=== PATIENT | female | born 1970 | race Caucasian/White ===

== ENCOUNTER 2019-07-21 13:17 | Emergency (ER) | payer SELFPAY ==
--- NOTE | 2019-07-21 13:53 | EDM.PDOC ---
ED HPI GENERAL MEDICAL PROBLEM - General Chief Complaint: General Stated Complaint: COUGH,FEVER AND PAIN Time Seen by Provider: 07/21/19 13:41 Source of Information: Reports: Patient History Limitations: Reports: No Limitations - History of Present Illness INITIAL COMMENTS - FREE TEXT/NARRATIVE: Patient is a 48-year-old female who is presents to the ER today with complaints of cough, chills, body aches, nausea, and likely fever. She states her symptoms initially began on 18 July and began as nausea, vomiting, and diarrhea. Those symptoms have since resolved, however shortly thereafter she developed respiratory symptoms and body aches. She states this morning she is been having "chest heaviness ". She states it is not painful and that it doesn' t worsen with coughing. 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 She did get a flu shot in June of this last year. Her appetite has been decreased, however she states that she has been consuming an adequate amount of fluid so she does not feel like she is dehydrated. She has no chronic health problems. She has not checked her temperature at home, however she states that her told her she felt like she was on fire last night. She is afebrile in the ER at this point, however she did take a dose of Tylenol around 10:00 this morning. She denies any shortness of breath or productive cough. She is no longer having vomiting or diarrhea. 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: - Past Surgical History HEENT Surgical History: Reports: Tonsillectomy Cardiovascular Surgical History: Reports: Other (See Below) Other Cardiovascular Surgeries/Procedures: cardiac ablasion 2018 Female Surgical History: Reports: Section, Hysterectomy Social & Family History - Family History Family Medical History: Noncontributory - Tobacco Use Smoking Status *Q: Never Smoker Second Hand Smoke Exposure: Yes - Caffeine Use Caffeine Use: Reports: Coffee - Recreational Drug Use Recreational Drug Use: No ED ROS GENERAL - Review of Systems Review Of Systems: Comprehensive ROS is negative, except as noted in HPI. ED EXAM, GENERAL - Physical Exam Exam: See Below Exam Limited By: No Limitations General Appearance: Alert, WD/WN, No Apparent Distress Throat/Mouth: Normal Inspection, Normal Oropharynx Neck: Normal Inspection, Supple, Non-Tender Respiratory/Chest: No Respiratory Distress, Lungs Clear, Normal Breath Sounds, No Accessory Muscle Use, Chest Non-Tender Cardiovascular: Normal Peripheral Pulses, Regular Rate, Rhythm, No Edema, No Murmur GI/Abdominal: Normal Bowel Sounds, Soft, Non-Tender, No Distention Neurological: Alert, Oriented, Normal Cognition Psychiatric: Normal Affect, Normal Mood Skin Exam: Warm, Dry, Intact, Normal Color, No Rash Lymphatic: No Adenopathy EKG INTERPRETATION EKG Date: 07/21/19 Time: 14:02 Rhythm: NSR Rate (Beats/Min): 77 [place]: Normal P-Wave: Present QRS: Normal ST-T: Normal QT: Normal Comparison: NA - No Prior EKG EKG Interpretation Comments: Q wave V2 No ST changes. Read by Dr. Richard Matt MD. Course - Vital Signs Last Recorded V/S: Last Vital Signs Temp 98.2 F 07/21/19 13:33 Pulse 73 07/21/19 13:33 Resp 19 07/21/19 13:33 BP 118/81 07/21/19 13:33 Pulse Ox 95 07/21/19 13:33 - Orders/Labs/Meds Orders: Active Orders 24 hr Category Date Time Status EKG Documentation Completion [RC] STAT Care 07/21/19 14:00 Active Chest 2V [CR] Stat Exams 07/21/19 13:48 Taken Labs: Laboratory Tests 07/21/19 07/21/19 Range/Units 14:08 14:08 WBC 6.68 (3.98-10.04) K/mm3 RBC 4.90 (3.98-5.22) M/mm3 Hgb 14.5 (11.2-15.7) gm/dl Hct 43.6 (34.1-44.9) % MCV 89.0 (79.4-94.8) fl MCH 29.6 (25.6-32.2) pg MCHC 33.3 (32.2-35.5) g/dl RDW Std Deviation 42.3 (36.4-46.3) fL Plt Count 232 (182-369) K/mm3 MPV 9.6 (9.4-12.3) fl Neut % (Auto) 55.1 (34.0-71.1) % Lymph % (Auto) 26.8 (19.3-51.7) % [place] % (Auto) 16.9 H (4.7-12.5) % Eos % (Auto) 1.0 (0.7-5.8) Baso % (Auto) 0.1 (0.1-1.2) % Neut # (Auto) 3.67 (1.56-6.13) K/mm3 Lymph # (Auto) 1.79 (1.18-3.74) K/mm3 [place] # (Auto) 1.13 H (0.24-0.36) K/mm3 Eos # (Auto) 0.07 (0.04-0.36) K/mm3 Baso # (Auto) 0.01 (0.01-0.08) K/mm3 Manual Slide Review Abnormal smear Sodium 142 (136-145) mEq/L Potassium 3.8 (3.5-5.1) mEq/L Chloride 105 (98-107) mEq/L Carbon Dioxide 27 (21-32) mEq/L Anion Gap 13.8 (5-15) BUN 8 (7-18) mg/dL Creatinine 0.9 (0.55-1.02) mg/dL Est Cr Clr Drug Dosing 74.34 mL/min Estimated GFR (MDRD) > 60 (>60) mL/min BUN/Creatinine Ratio 8.9 L (14-18) Glucose 93 (74-106) mg/dL Calcium 8.9 (8.5-10.1) mg/dL Total Bilirubin 0.2 (0.2-1.0) mg/dL AST 18 (15-37) U/L ALT 29 (14-59) U/L Alkaline Phosphatase 65 (46-116) U/L Troponin I < 0.017 (0.00-0.056) ng/mL Total Protein 7.1 (6.4-8.2) g/dl Albumin 3.5 (3.4-5.0) g/dl Globulin 3.6 gm/dL Albumin/Globulin Ratio 1.0 (1-2) - Re-Assessments/Exams Free Text/Narrative Re-Assessment/Exam: Based on patient's exam and history, I feel it is likely she is suffering from a viral illness, however in light of her chest pressure that began this morning I will also include a cardiac workup. I have ordered a CBC, CMP, troponin, EKG , and influenza screen. We will also get a 2 view chest x-ray. 07/21/19 1520 patient's workup was grossly unremarkable. Her EKG was negative for any acute changes. Influenza screen was negative. Hematology was all within normal limits. I feel is likely she is suffering from a viral illness. Discussed these findings with the patient. I will send a prescription for prednisone to help with the cough Discharge instructions as noted. Departure - Departure Time of Disposition: 15:25 Disposition: Home, Self-Care 01 Condition: Fair Clinical Impression: Viral illness - Discharge Information *PRESCRIPTION DRUG MONITORING PROGRAM REVIEWED*: No *COPY OF PRESCRIPTION DRUG MONITORING REPORT IN PATIENT BINH: No Prescriptions: predniSONE [Prednisone] 20 mg PO ASDIRECTED #9 tablet Instructions: Viral Respiratory Infection, [id number] Referrals: PCP,None [Primary Care Provider] - Forms: ED Department Discharge Additional Instructions: You were seen in the emergency Department today with cough, chills, body aches, nausea, and chest tightness. Your workup included a CBC, CMP, troponin, influenza screen, EKG, and chest x-ray. The results of this testing was all normal. There were no signs of a bacterial infection such as pneumonia. It is likely that you are suffering from a viral infection. Treatment for this is symptomatic and to allow the virus to run its course. This generally takes about 7-10 days. I recommend that you maintain adequate hydration and rest. You may use Tylenol or ibuprofen as needed for fever and body aches. I have sent a prescription for prednisone to [place] [facility] in [place] [facility] [facility]. Take this medication as prescribed. If you should experience any new or worsening symptoms, or if you fail to improve over the next 5-7 days as expected, please do not hesitate to return to the emergency department. Sepsis Event Note - Evaluation Sepsis Screening Result: No Definite Risk - Focused Exam Vital Signs: Vital Signs Temp Pulse Resp BP Pulse Ox 07/21/19 13:33 98.2 F 73 19 118/81 95 Date Exam was Performed: 07/21/19 Time Exam was Performed: 18:32 - My Orders Last 24 Hours: My Active Orders 07/21/19 13:48 Chest 2V [CR] Stat 07/21/19 14:00 EKG Documentation Completion [RC] STAT - Assessment/Plan Last 24 Hours: My Active Orders 07/21/19 13:48 Chest 2V [CR] Stat 07/21/19 14:00 EKG Documentation Completion [RC] STAT
--- NOTE | 2019-07-23 17:48 | CR ---
Chest: Two views of the chest were obtained. Comparison: No previous chest x-ray is available. Heart size at the upper limits of normal. Upper mediastinum is normal. Lungs are clear with no acute parenchymal change. Mild scoliosis is noted within the spine. Impression: 1. Heart size at the upper limits of normal. 2. Other findings believed to be incidental. 3. Nothing acute is seen. Diagnostic code #2 This report was dictated in [place] Standard Time
== END 2019-07-21 15:37 | disposition home or self-care (01) ==
LOC: JD.ED 13:17
DX: B34.9 Viral infection, unspecified (principal)
CPT/HCPCS: 36415; 71046; 71046-26; 80053; 84484; 85025; 87804; 93005; 93010; 99283; 99284-25

== ENCOUNTER 2021-03-30 11:12 | Emergency (ER) | payer BC ==
[2021-03-30] MEDS ORDERED: Sodium Chloride 0.9% 1,000 ML IV ONE (11:41)
[2021-03-30] MEDS ORDERED: Ketorolac 30 MG/ML SDV IVPUSH ONE (11:41)
[2021-03-30] MEDS ORDERED: Ondansetron 4 MG/2 ML SDV IVPUSH ONE (12:03)
--- NOTE | 2021-03-30 13:26 | CT ---
CT abdomen and pelvis Technique: Multiple axial sections were obtained from above the dome of the diaphragm inferiorly through the pubic symphysis. Intravenous and oral contrast were not utilized. Study has been performed as a ureteral stone protocol. Reconstructed coronal and sagittal images were obtained. Comparison: No prior abdominal imaging is available. Findings: Scattered areas of nonobstructing calculi are seen within both kidneys. Left kidney shows dilatation of the renal pelvis as well as slightly dilatation of the proximal left ureter. These findings are caused by a 5.7 mm stone within the proximal left ureter. No other ureteral calculi are seen. Visualized lung bases show a small area of focal eventration within the left hemidiaphragm. No acute parenchymal change is seen. Liver contains no focal abnormality. Spleen is within normal limits. Adrenal glands show no nodule. Pancreas shows no discrete abnormality. Gallbladder contains no calcified gallstones. Abdominal aorta shows no aneurysm. No retroperitoneal adenopathy or mesenteric abnormalities are seen. Appendix is seen which is normal in size. No pelvic mass or adenopathy is seen. Mild scattered diverticuli are seen within the sigmoid colon with no inflammatory change to indicate diverticulitis. Bone window settings were reviewed which show mild scattered degenerative change within the spine. Impression: 1. 5.7 mm obstructing stone within the proximal left ureter. 2. Multiple nonobstructing calculi are seen within both kidneys. 3. Other findings believed to be chronic as described above. Diagnostic code #3
[2021-03-30] MEDS ORDERED: HYDROmorphone 0.5 MG/0.5 ML Syringe IVPUSH ONE (13:27)
[2021-03-30] MEDS ORDERED: Tamsulosin 0.4 MG Cap.ER PO ONE (13:28)
--- NOTE | 2021-03-30 13:53 | EDM.PDOC ---
ED HPI GENERAL MEDICAL PROBLEM - General Chief Complaint: Flank Pain Stated Complaint: KIDNEY STONE Time Seen by Provider: 03/30/21 11:23 Source of Information: Reports: Patient History Limitations: Reports: No Limitations, Other (ED vital signs reveal a temp of 96.6, pulse of 95, respiratory rate of 20, blood pressure 162/93, pulse ox 99% on room air.) - History of Present Illness INITIAL COMMENTS - FREE TEXT/NARRATIVE: 50-year-old female presents the emergency department with complaints of left flank pain that started at about 7 AM this morning. She states she has a hist ory of kidney stones and states this feels identical to the last one that she had. She states that the pain came on suddenly and caused her to feel nauseated however she has not vomited. Prior to this morning she has felt fine. She denies any recent fever, chills or diarrhea. She denies any urinary symptoms. She denies any hematuria noted in her urine. She states she is otherwise healthy. She is a pack-a-day smoker for the past 35 years. 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 ENGINEER: none Left Flank Pain Score (Numeric/FACES): 10 - Related Data Allergies Allergy/AdvReac Type Severity Reaction Status Date / Time No Known Allergies Allergy Verified 07/21/19 13:39 Home Meds: Home Meds Hydrocodone/Acetaminophen [HYDROcodone-Acetaminophen 5-325 MG] 1 each PO Q4H PRN #14 tab 03/30/21 [Rx] Ondansetron [Zofran ODT] 4 mg PO Q6H PRN #12 tab.dis 03/30/21 [Rx] Tamsulosin HCl [Flomax] 0.4 mg PO DAILY #10 cap.er.24h 03/30/21 [Rx] Past Medical History Cardiovascular History: Reports: Other (See Below) Other Cardiovascular History: 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 Genitourinary History: Reports: UTI, Recurrent 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: - Past Surgical History HEENT Surgical History: Reports: Tonsillectomy Cardiovascular Surgical History: Reports: Other (See Below) Other Cardiovascular Surgeries/Procedures: cardiac ablasion 2018 Female Surgical History: Reports: Section, Hysterectomy Social & Family History - Family History Family Medical History: No Pertinent Family History - Tobacco Use Tobacco Use Status *Q: Current Every Day Tobacco User Years of Tobacco use: 36 Packs/Tins Daily: 0.5 - Caffeine Use Caffeine Use: Reports: Coffee, Soda - Recreational Drug Use Recreational Drug Use: No ED ROS GENERAL - Review of Systems Review Of Systems: Comprehensive ROS is negative, except as noted in HPI. ED EXAM, RENAL/ - Physical Exam Exam: See Below Exam Limited By: No Limitations General Appearance: Alert, WD/WN, Moderate Distress Ears: Normal External Exam, Hearing Grossly Normal Nose: Normal Inspection Throat/Mouth: Normal Inspection, Normal Lips, Normal Voice, No Airway Compromise Head: Atraumatic Neck: Normal Inspection, Supple Respiratory/Chest: No Respiratory Distress, Lungs Clear, Normal Breath Sounds, No Accessory Muscle Use, Chest Non-Tender Cardiovascular: Normal Peripheral Pulses, Regular Rate, Rhythm, No Edema, No Murmur GI/Abdominal: Normal Bowel Sounds, Soft, Non-Tender, No Distention (Female) Exam: Deferred Rectal (Female) Exam: Deferred Back Exam: Normal Inspection, Full Range of Motion, CVA Tenderness (L) Extremities: Normal Inspection Neurological: Alert, Oriented, Normal Cognition Psychiatric: Normal Affect, Normal Mood Skin Exam: Warm, Dry, Intact, Normal Color, No Rash Lymphatic: No Adenopathy Course - Vital Signs Text/Narrative:: As stated above, patient presents with left flank pain that started early this morning. Upon exam, the patient is pacing in the room and does appear to be uncomfortable. Lungs are clear to auscultation per. She does have costovertebral angle tenderness noted to the left flank. Will obtain lab studies to include a CBC, CMP, C-reactive protein, urinalysis with micro and culture if indicated. Also obtain a CT of the abdomen and pelvis without contrast to rule out stone. Patient will also be given a liter of normal saline IV as well as Toradol 30 mg IV and Zofran 4 mg IV. Last Recorded V/S: Last Vital Signs Temp 96.6 F L 03/30/21 11:30 Pulse 95 03/30/21 11:30 Resp 20 03/30/21 11:30 BP 162/93 H 03/30/21 11:30 Pulse Ox 99 03/30/21 11:30 - Orders/Labs/Meds Orders: Active Orders 24 hr Category Date Time Status CULTURE URINE [MREF] Stat Lab 03/30/21 13:40 Received Labs: Laboratory Tests 03/30/21 03/30/21 03/30/21 Range/Units 11:30 11:30 13:40 WBC 26.12 H (3.98-10.04) K/mm3 RBC 4.92 (3.98-5.22) M/mm3 Hgb 14.9 (11.2-15.7) gm/dl Hct 43.7 (34.1-44.9) % MCV 88.8 (79.4-94.8) fl MCH 30.3 (25.6-32.2) pg MCHC 34.1 (32.2-35.5) g/dl RDW Std Deviation 41.9 (36.4-46.3) fL Plt Count 372 H D (182-369) K/mm3 MPV 10.0 (9.4-12.3) fl Neut % (Auto) 91.9 H (34.0-71.1) % Lymph % (Auto) 2.3 L (19.3-51.7) % [place] % (Auto) 5.4 (4.7-12.5) % Eos % (Auto) 0 L (0.7-5.8) Baso % (Auto) 0.1 (0.1-1.2) % Neut # (Auto) 24.01 H (1.56-6.13) K/mm3 Lymph # (Auto) 0.59 L (1.18-3.74) K/mm3 [place] # (Auto) 1.41 H (0.24-0.36) K/mm3 Eos # (Auto) 0.00 L (0.04-0.36) K/mm3 Baso # (Auto) 0.02 (0.01-0.08) K/mm3 Manual Slide Review Abnormal smear Sodium 137 (136-145) mEq/L Potassium 3.8 (3.5-5.1) mEq/L Chloride 100 (98-107) mEq/L Carbon Dioxide 25 (21-32) mEq/L Anion Gap 15.8 H (5-15) BUN 16 (7-18) mg/dL Creatinine 0.9 (0.55-1.02) mg/dL Est Cr Clr Drug Dosing 72.72 mL/min Estimated GFR (MDRD) > 60 (>60) mL/min BUN/Creatinine Ratio 17.8 (14-18) Glucose 135 H (70-99) mg/dL Calcium 9.2 (8.5-10.1) mg/dL Magnesium 1.8 (1.8-2.4) mg/dL Total Bilirubin 0.5 (0.2-1.0) mg/dL AST 17 (15-37) U/L ALT 24 (14-59) U/L Alkaline Phosphatase 97 (46-116) U/L C-Reactive Protein 1.5 H* (<1.0) mg/dL Total Protein 7.6 (6.4-8.2) g/dl Albumin 4.2 (3.4-5.0) g/dl Globulin 3.4 gm/dL Albumin/Globulin Ratio 1.2 (1-2) Urine Color Yellow (Yellow) Urine Appearance Clear (Clear) Urine pH 7.0 (5.0-8.0) Ur Specific [place] 1.020 (1.005-1.030) Urine Protein Negative (Negative) Urine Glucose (UA) Negative (Negative) Urine Ketones Trace H (Negative) Urine Occult Blood 1+ H (Negative) Urine Nitrite Positive H (Negative) Urine Bilirubin Negative (Negative) Urine Urobilinogen 0.2 (0.2-1.0) Ur Leukocyte Esterase 1+ H (Negative) Urine RBC 5-10 H (0-5) /hpf Urine WBC 10-20 H (0-5) /hpf Ur Squamous Epith Cells 0-5 (0-5) /hpf Urine Bacteria Many H (FEW) /hpf Urine Mucus Rare (FEW) /hpf Meds: Medications Discontinued Medications Generic Name Dose Route Start Last Admin Trade Name Freq PRN Reason Stop Dose Admin Hydromorphone HCl 0.5 mg 03/30/21 13:27 03/30/21 13:57 Hydromorphone 0.5 Mg/0.5 Ml Syringe IVPUSH 03/30/21 13:28 0.5 mg ONETIME ONE Administration Sodium Chloride 1,000 mls @ 999 mls/hr 03/30/21 11:41 03/30/21 11:55 Normal Saline IV 03/30/21 12:41 999 mls/hr ONETIME ONE Administration Ketorolac Tromethamine 30 mg 03/30/21 11:41 03/30/21 11:50 Ketorolac 30 Mg/Ml Sdv IVPUSH 03/30/21 11:42 30 mg ONETIME ONE Administration Ondansetron HCl 4 mg 03/30/21 12:03 03/30/21 12:09 Ondansetron 4 Mg/2 Ml Sdv IVPUSH 03/30/21 12:04 4 mg ONETIME ONE Administration Tamsulosin HCl 0.4 mg 03/30/21 13:28 03/30/21 13:59 Tamsulosin 0.4 Mg Cap.Er PO 03/30/21 13:29 0.4 mg ONETIME ONE Administration - Re-Assessments/Exams Free Text/Narrative Re-Assessment/Exam: 03/30/21 13:[address] of the abdomen and pelvis: 1. 5.7 mm obstructing stone within the proximal left ureter. 2. Multiple nonobstructing calculi are seen within both kidneys. 3. Other incidental findings believed to be chronic as described above. 03/30/21 13:53 Hematology reveals a WBC of 26.12, hemoglobin 14.9, hematocrit 43.7, platelet count 372 Chemistry reveals a sodium of 137, potassium 3.8, anion gap 15.8, BUN 16, creatinine 0.9, GFR greater than 60, glucose 135, magnesium 1.8, C-reactive protein 1.5 03/30/21 14:24 Urinalysis reveals trace ketones, 1+ occult blood, nitrate positive, 1+ leukocyte Estrace, urine RBC 5-10, urine WBC 10-20, urine bacteria many Discussed the results with the patient. She states that she was told she will chronically have UTIs for the rest of her life and will likely need to be on antibiotics. She states that she discussed this with her primary care provider and does not want this. She does not want to be placed on antibiotics today. We will discharge her to home with pain medication and nausea medication and she does have strict instructions that should she develop a fever, nausea or vomiting that she needs to return to this ER or go directly to [facility] in [place] because she will need urgent treatment. Patient does verbalize understanding of this. We will discharge her to home with a prescription for Flomax, hydrocodone, and Zofran. She will also be sent with a urine strainer. Departure - Departure Time of Disposition: 14:26 Disposition: Home, Self-Care 01 Condition: Good Clinical Impression: Kidney stone on left side - Discharge Information Prescriptions: Tamsulosin HCl [Flomax] 0.4 mg PO DAILY #10 cap.er.24h Hydrocodone/Acetaminophen [HYDROcodone-Acetaminophen 5-325 MG] 1 each PO Q4H PRN #14 tab PRN Reason: Pain (Moderate 4-6) Ondansetron [Zofran ODT] 4 mg PO Q6H PRN #12 tab.dis PRN Reason: Nausea/Vomiting Instructions: Kidney Stones, [id number], Pain Medicine Instructions, [id number] Referrals: Jeffrey Villanueva MD [Primary Care Provider] - Forms: ED Department Discharge Additional Instructions: You were seen in the emergency department today with complaints of left flank pain. Lab studies were completed which did show you had an elevated white blood cell count however this could likely be due to pain and a stress response as you stated you have not had fever or chills, nausea vomiting or diarrhea. Urinalysis was completed which will be sent for culture. There was blood noted in your urine. CT scan does reveal a 5.7 mm stone within the proximal left ureter. She you did receive IV fluids and pain and nausea medications in the emergency department. Flomax was also given. I have sent a prescription to your pharmacy for Flomax 1 tab to be taken daily. You may take hydrocodone tabs 1 every 4 hours as needed for more severe pain. May also take ibuprofen 600 mg every 6-8 hours as needed for pain. I have also sent prescription for Zofran and nausea medication to be taken 1 tab placed under the tongue every 6 hours as needed for nausea and vomiting. You will need to strain all of your urine. Should you develop a fever, chills, nausea or vomiting, you do need to return to this emergency department or go directly to [facility] emergency department as you will need to have the stone removed surgically. As discussed you did not want to be treated with antibiotics today. Should your condition worsen or change, do not hesitate returning to the emergency department. Sepsis Event Note (ED) - Focused Exam Vital Signs: Vital Signs Temp Pulse Resp BP Pulse Ox 03/30/21 11:30 96.6 F L 95 20 162/93 H 99 - My Orders Last 24 Hours: My Active Orders 03/30/21 13:40 CULTURE URINE [MREF] Stat - Assessment/Plan Last 24 Hours: My Active Orders 03/30/21 13:40 CULTURE URINE [MREF] Stat
== END 2021-03-30 15:00 | disposition home or self-care (01) ==
LOC: SUPCPDRO 11:12 → JD.ED 11:12
DX: N20.0 Calculus of kidney (principal); Z72.0 Tobacco use
CPT/HCPCS: 36415; 74176; 80053; 81001; 83735; 85025; 86140; 87086; 87088; 87186; 96374; 96375; 99284; A9270; J1170; J1885; J2405; J7030